=== PATIENT | female | born 1975 | race Caucasian/White ===

== ENCOUNTER → 2019-10-29 13:05 | Outpatient (CLI) | payer OTHER, SELFPAY ==
--- NOTE | ~2019-10-29 | CT_ITS ---
EXAMINATION: CT abdomen pelvis wo con DATE: 10/29/2019 13:31 INDICATION: Abdominal pain. Hematuria. Flank pain. TECHNIQUE: Computed tomography (CT) of the abdomen and pelvis was performed without intravenous contr ast. Automated exposure control and iterative reconstruction technique were employed. Exam dose: 604 .82 mGy-cm total exam DLP. COMPARISON: CT dated 06/29/2010 FINDINGS: Lung bases are unremarkable. Heart size normal. No significant pleural or pericardial effus ion. No significant vascular abnormality. No lymphadenopathy. No renal/ureteral stones. No hydronephr osis. Bladder is unremarkable. Uterus is retroverted. No abnormal pelvic masses or fluid collections. The liver, spleen, pancreas, adrenal glands are unremarkable. Bowel pattern is nonobstructive. No vijay dence for appendicitis or diverticulitis. Small sclerotic lesions of the pelvis are likely benign [place]. No acute osseous abnormality. IMPRESSION: 1: No acute abdominal abnormality. Reviewed, dictated and finalized at [facility]. Reviewed, dictated and finalized at [facility].
== END ==
PROVIDERS: Visit Provider Physician Assistant
DX: R10.9 Unspecified abdominal pain (principal)
CPT/HCPCS: 74176